=== PATIENT | female | born 1950 | race Caucasian/White ===

== ENCOUNTER 2022-05-29 07:17 | Emergency (ER) | payer BC ==
[~2022-05-29] VITALS: Ht 167.6 cm; Wt 72.6 kg
[2022-05-29] MEDS ORDERED: LOSARTAN POTASS25 M2 PO (07:54)
[2022-05-29] MEDS ORDERED: LATANOPROST2.5 M3 OP (07:55)
== END 2022-05-29 08:08 | disposition home or self-care (01) ==
LOC: ER 07:17
DX: H53.9 Unspecified visual disturbance (principal)
CPT/HCPCS: 99283